=== PATIENT | male | born 1980 | race Caucasian/White ===

== ENCOUNTER 2023-02-13 15:55 | Outpatient (CLI) | payer OTHER | END 2023-02-13 23:59 | disposition short-term general hospital (02) | LOC: EMS 15:55 | DX: R20.0 Anesthesia of skin (principal); I10 Essential (primary) hypertension | CPT/HCPCS: A0425; A0429 ==

== ENCOUNTER 2023-07-19 12:52 | Emergency (ER) | payer OTHER ==
[2023-07-19 13:08] VITALS: BP 150/90; O2SAT 96
[2023-07-19] MEDS ORDERED: BUFFERED LIDOCAINE 10 ML SYRINGE SUBQ STA (13:45)
[2023-07-19] MEDS ORDERED: TETANUS/DIPHTHERIA/PERTUSSIS 0.5 ML SYRINGE IM ONE (13:53)
--- NOTE | 2023-07-19 13:54 | ED Physician Documentation ---
PD HPI UPPER EXT INJURY - Stated complaint Stated Complaint: FINGER STUCK - Chief complaint Chief Complaint: Laceration - History obtained from History obtained from: Patient (He was fishing today and has a fishhook in the right second, dominant finger. Tetanus status unknown.) PD PAST MEDICAL HISTORY - Past Medical History Past Medical History: Yes Cardiovascular: Hypertension, High cholesterol Endocrine/Autoimmune: HyPOthyroidism - Past Surgical History Past Surgical History: Yes Ortho: Other - Present Medications Home Medications: Ambulatory Orders Medication Instructions Recorded Confirmed Atorvastatin [Lipitor] 10 mg PO DAILY 07/19/23 07/19/23 Levothyroxine [Synthroid] 125 mcg PO DAILY 07/19/23 07/19/23 Metoprolol Succinate [Toprol Xl] 25 mg PO DAILY 07/19/23 07/19/23 - Allergies Allergies/Adverse Reactions: Allergies Allergy/AdvReac Type Severity Reaction Status Date / Time No Known Drug Allergies Allergy Verified 07/19/23 13:02 - Social History Does the pt smoke?: No Smoking Status: Never smoker Does the pt drink ETOH?: No Does the pt have substance abuse?: No - Immunizations Immunizations are current?: No PD ED PE NORMAL - Vitals Vital signs reviewed: Yes - General General: Alert and oriented X 3, No acute distress - Extremities Extremities: Other (There is a fishhook embedded in the pulp of the distal right second finger.) - Neuro Neuro: Alert and oriented X 3, Normal speech Results - Vitals Vitals: Vital Signs - 24 hr 07/19/23 13:02 Temperature 36.5 C Heart Rate 74 Respiratory 16 Rate Blood Pressure 150/90 H O2 Saturation 96 Procedures - General procedure General procedure: The right second finger was blocked with buffered lidocaine, then I had to cut the fishhook and then was able to use the needle over the reanna technique to remove it. Then I flushed the wound and dressed it. Departure - Departure Disposition: 01 Home, Self Care Clinical Impression: [place] injury to finger Qualifiers: Encounter type: initial encounter Laterality: right Qualified Code(s): S69.91XA - Unspecified injury of right wrist, hand and finger(s), initial encounter Condition: Good Record reviewed to determine appropriate education?: Yes Instructions: ED Puncture Wound Fish Hook Removed Comments: Note for your records that she received a Tdap shot today. Forms: PCP List
== END 2023-07-19 14:25 | disposition home or self-care (01) ==
LOC: ED 12:52
DX: S61.240A Puncture wound with foreign body of right index finger without damage to nail, initial encounter (principal); W45.8XXA Other foreign body or object entering through skin, initial encounter; Y93.89 Activity, other specified
CPT/HCPCS: 87070; 87205; 90471; 99283